=== PATIENT | male | born 1995 | race Caucasian/White ===

== ENCOUNTER 2017-01-10 02:36 | Emergency (ER) | payer OTHER ==
[2017-01-10 03:24] VITALS: BP 137/70; PULSE 87; RESP 18; TEMP 98.1; O2SAT 95
[2017-01-10] MEDS ORDERED: LET GEL TOPICAL 1 EA SYR TP ONE (03:41)
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
== END 2017-01-10 05:45 | disposition home or self-care (01) ==
LOC: EDUNIT#
PROC: 0HQ1XZZ Repair Face Skin, External Approach (ICD-10-PCS; principal; 2017-01-10)
DX: S01.81XA Laceration without foreign body of other part of head, initial encounter (principal); S50.312A Abrasion of left elbow, initial encounter; S60.511A Abrasion of right hand, initial encounter; W05.2XXA Fall from non-moving motorized mobility scooter, initial encounter; Y99.8 Other external cause status; Y93.89 Activity, other specified